=== PATIENT | male | born 1935 | race Caucasian/White ===

== ENCOUNTER 2019-01-10 08:58 | Day surgery (SDC) | payer MEDICAID ==
[~2019-01-10] VITALS: Ht 160 cm; Wt 82.6 kg
[~2019-01-10 08:58] MED LIST: ALLO100T PO; ATEN50TA PO; BALANCED SALT IRRIG SOLN COMB1 500ML OP ONE; GLIP5TAB12 PO; HYDR100T26 PO; LEVO50TA8 PO; LOSA100T14 PO
[2019-01-10] MEDS ORDERED: PHENYLEPHRINE HCL 10% OPHTH DROPS 5ML LEFTEYE NR (09:20)
[2019-01-10] MEDS ORDERED: CYCLOPENTOLATE HCL 1% OPHTH DROPS 2ML LEFTEYE NR (09:20)
[2019-01-10] MEDS ORDERED: TROPICAMIDE 1% OPHTH DROPS 15ML LEFTEYE NR (09:20)
[2019-01-10] MEDS ORDERED: SODIUM CHLORIDE 0.9% 1,000 ML IV SCH (10:00)
[2019-01-10] MEDS ORDERED: NEO/POLYMYX B SULF/DEXAMETH OPHTH OINT 3.5GM ONE (10:21)
[2019-01-10] MEDS ORDERED: LIDOCAINE HCL 2%/EPINEPHRINE 1:100,000 20 ML VIAL INFIL ONE (10:21)
[2019-01-10] MEDS ORDERED: LIDOCAINE HCL/PF 2% 20 MG/ML 10ML VIAL ONE (10:21)
[2019-01-10] MEDS ORDERED: CIPROFLOXACIN 0.3% OPHTH SOLN 2.5ML ONE (10:21)
[2019-01-10] MEDS ORDERED: PREDNISOLONE ACETATE 1% OPHTH DROPS 1ML ONE (10:21)
[2019-01-10] MEDS ORDERED: BALANCED SALT IRRIG SOLN 15ML ONE (10:21)
[2019-01-10] MEDS ORDERED: TETRACAINE 0.5% OPHTH DROPS 4ML ONE (10:21)
[2019-01-10] MEDS ORDERED: BUPIVACAINE HCL/PF 0.75% (7.5MG/ML) 10ML ONE (10:21)
[2019-01-10] MEDS ORDERED: HYALURONATE SODIUM 14 MG/ML 0.85ML SYRINGE IO ONE (11:10)
[2019-01-10] MEDS ORDERED: MIDAZOLAM HCL 2 MG/2 ML VIAL ONE (11:27)
[2019-01-10] MEDS ORDERED: PROPOFOL 200MG/20ML VIAL IV ONE (11:50)
== END 2019-01-10 14:30 | disposition home or self-care (01) ==
LOC: OR 08:58
PROVIDERS: ATTEND Ophthalmology
DX: E11.36 Type 2 diabetes mellitus with diabetic cataract (principal); H25.89 Other age-related cataract; H43.12 Vitreous hemorrhage, left eye; D49.2 Neoplasm of unspecified behavior of bone, soft tissue, and skin; I12.0 Hypertensive chronic kidney disease with stage 5 chronic kidney disease or end stage renal disease; E11.22 Type 2 diabetes mellitus with diabetic chronic kidney disease; N18.6 End stage renal disease; Z90.49 Acquired absence of other specified parts of digestive tract
CPT/HCPCS: 17110; 66984; 67005; 82962; J2250; J2704; J3490; V2632